=== PATIENT | female | born 1950 | race African-American/Black ===

== ENCOUNTER 2016-09-30 16:39 | Emergency (ER) | payer OTHER ==
--- NOTE | ~2016-09-30 | CR72 ---
[facility] A Service of [facility] & [facility] RADIOLOGY TEXT RESULTS PATIENT: TAY GALINDO LOCATION: [facility] : 48 UNIT #: [id number] AGE: [address]: Grace Perez MD SEX: F ORDER DR: [id number] [facility] [address] [place], [place] [address] [id number] E MR#: [id number] Acc #: [id number] NAME: TAY GALINDO : 1950 SEX: F STUDY DATE/TIME: 09/30/2016 18:12 UNIT: [facility] ROOM: STUDY DESCRIPTION: CR Chest Single View Portable Attending Physician: Grace Perez M.D. Ordering Physician: José Owen D.O. Primary Care Physician: Marylu Matthews M.D. MEDICAL IMAGING REPORT This report is preliminary unless electronic signature is present EXAM Single view of the chest dated 09/30/2016 at 18:12 hours. COMPARISON Single view chest dated 06/13/2015. HISTORY Shortness of air for 2 days, chest pain and nausea. FINDINGS Single view of the chest was obtained. Lungs are well-aerated. Heart, mediastinum and bones do not demonstrate any significant abnormality. IMPRESSION No acute cardiopulmonary disease. Dictated by... Pablo Davis M.D. THIS IS AN ELECTRONICALLY VERIFIED REPORT Pablo Davis M.D. at 10/02/2016 5:09 PM CPR/rnr TD: 10/01/2016 02:00 JOB #: [id number] MEDICAL IMAGING REPORT Page 1 of 1 COPY
--- NOTE | ~2016-09-30 | EKG ---
PATIENT: TAY GALINDO UNIT #: [id number] Ventricular Rate: 74 BPM Atrial Rate: 74 BPM P-R Interval: 164 ms QRS Duration: 94 ms Q-T Interval: 380 ms QTC Calculation(Bezet): 421 ms P [place]: 51 degrees Calculated R [place]: 3 degrees Calculated T [place]: 29 degrees Diagnosis Line: Normal sinus rhythm Diagnosis Line: Minimal voltage criteria for LVH, may be normal Diagnosis Line: variant Diagnosis Line: Borderline ECG Diagnosis Line: When compared with ECG of 01-JUL-2014 17:17, Diagnosis Line: Vent. rate has decreased BY 36 BPM Diagnosis Line: Confirmed by CHANTE RUIZ MD ([id number]) on 10/01/2016 Diagnosis Line: 4:47:26 PM INTERPRETING MD: SARA MCKEON
[~2016-09-30 16:39] MED LIST: ANTIVERT PO; BENTYL10 MG PO; FLEXERIL10 M1 PO; LEVAQUIN PO; LORTAB 5/500 TA1 TA1 PO; PREDNISONE PO; ROBITUSSIN A-C-S1 ML PO
[2016-09-30 18:14] LABS: BASOPHIL% 0.9 % (0-2.5); EOSINOPHIL# 0.1 X10e3 (0-0.7); EOSINOPHIL% 1.4 % (0.0-7.0); HEMATOCRIT 40.9 % (35.0-45.0); HEMOGLOBIN 13.6 gm/dL (12.0-16.0); LYMPHOCYTE# 2.2 X10e3 (1.0-3.5); LYMPHOCYTE% 40.1 % (17.0-45.0); MEAN CELL VOLUME 90.5 FL (83-96); MEAN CORPUSCULAR HGB CONC 33.1 g/dL (30-36); MEAN PLATELET VOLUME 7.9 FL (6.5-11.5); MONOCYTE# 0.4 X10e3 (0-1.0); NEUTROPHIL# 2.8 X10e3 (1.5-7.1); NEUTROPHIL% 50.6 % (40-75); PLATELET COUNT 237 X10e3 (140-420); RED BLOOD COUNT 4.52 X10e (3.90-5.30); RED CELL DISTRIBUTION WIDTH 13.3 % (11.0-15.5); WHITE BLOOD COUNT 5.5 X10e3 (4.0-10.5)
[2016-09-30 18:15] LABS: POC - CKMB 1.4 ng/mL (0.0-7.9); POC - TROPONIN <0.05 ng/mL (<=0.05)
[2016-09-30 18:15] LABS: DIFF IND NO
[2016-09-30 18:32] LABS: ALBUMIN SERUM 3.9 g/dL (3.5-5.0); ALKALINE PHOSPHATASE 62 U/L (32-92); ALT (SGPT) 16 U/L (10-40); AST (SGOT) 20 U/L (10-42); BILIRUBIN,TOTAL 0.5 mg/dL (0.2-2.0); BLOOD UREA NITROGEN 13 mg/dL (9-23); CALCIUM SERUM 9.3 mg/dL (8.4-10.2); CARBON DIOXIDE 27 mmol/L (22-31); CHLORIDE 106 mmol/L (100-111); GLOM FILT RATE Estimated 67.5 mL/min (>60); GLUCOSE FASTING 127 mg/dL (70-110); POTASSIUM 3.5 mmol/L (3.5-5.1); PROTEIN TOTAL SERUM 7.2 g/dL (6.0-8.3); SODIUM 140 mmol/L (135-145)
[2016-09-30 18:35] LABS: BILIRUBIN, DIRECT <0.1 mg/dL (0.0-0.2); BILIRUBIN,INDIRECT 0.4 mg/dL (0.0-0.9)
[2016-09-30 21:47] LABS: POC - CKMB 1.6 ng/mL (0.0-7.9); POC - TROPONIN <0.05 ng/mL (<=0.05)
== END 2016-09-30 22:03 | disposition home or self-care (01) ==
LOC: CED 16:39
PROVIDERS: Student in an Organized Health Care Education/Training Program
DX: J40 Bronchitis, not specified as acute or chronic (principal); M79.2 Neuralgia and neuritis, unspecified; M79.7 Fibromyalgia; K21.9 Gastro-esophageal reflux disease without esophagitis; I10 Essential (primary) hypertension; Z90.710 Acquired absence of both cervix and uterus; Z88.5 Allergy status to narcotic agent; Z88.8 Allergy status to other drugs, medicaments and biological substances; Z91.040 Latex allergy status
CPT/HCPCS: 36415; 71010; 80048; 80076; 82553; 83880; 84484; 85025; 93005; 94640; 96361; 96374; 99285; J2930